=== PATIENT | male | born 1970 | race Caucasian/White ===

== ENCOUNTER 2019-10-23 22:46 | Observation (INO) | payer MEDICAID ==
[2019-10-23] MEDS ORDERED: Sodium Chloride 0.9% 1000 ML 1,000 ML IV STA (23:09)
[2019-10-23] MEDS ORDERED: Sodium Chloride 0.9% 1000 ML 1,000 ML ONE (23:14)
[2019-10-23 23:40] LABS: Absolute Neutrophil Ct (ANC) 3.14 (1.4-6.9); BASOPHIL % 1.7 % (0.0-0.4); Eosinophil % 2.5 % (0.00-5.0); Eosinophil (Absolute #) 0.15 (0-0.5); Hematocrit 35.4 % (42-50); Hemoglobin 12.7 gm/dl (12.5-18.0); Lymphocyte (Absolute #) 1.69 (1.0-4.6); Lymphocytes % 28.2 % (24.0-44.0); Mean Cell Volume 106.6 fl (78-100); Mean Corpuscular Hemoglobin 38.3 pg (26-32); Mean Corpuscular Hgb Concent. 35.9 g/dl (32-36); Mean Platelet Volume 11.1 fl (6-9.5); Monocyte (Absolute #) 0.92 (0.0-1.3); Monocytes % 15.3 % (0.0-12.0); Neutrophil % 52.3 % (36.0-66.0); Platelet Count 57 K/mm3 (150-450); Red Blood Count 3.32 M/mm3 (4.1-5.6); Red Cell Distribution Width 15.5 % (11.5-14.0)
[2019-10-23 23:44] LABS: INR 1.98 (0.8-3.0); PROTIME 22.7 SECONDS (8.83-12.87)
[2019-10-23 23:49] LABS: ALBUMIN 2.7 g/dL (3.5-5.0); ALKALINE PHOSPHATASE 203 U/L (38-126); AMYLASE 123 U/L (30-110); ANION GAP 11.2 MEQ/L (5-15); BLOOD UREA NITROGEN 6 mg/dL (9-20); CHLORIDE 108 mmol/L (98-107); CK-Creatinine Phosphokinase 235 U/L (55-170); Carbon Dioxide 28 mmol/L (22-30); Creatinine 1 0.59 mg/dL (0.66-1.25); Glucose 106 mg/dL (74-106); LIPASE 181 U/L (23-300); SGOT/AST 117 U/L (17-59); SGPT/ALT 31 U/L (0-50); SODIUM 143 mmol/L (137-145); Total Protein 7.2 g/dL (6.3-8.2)
[2019-10-24 00:01] LABS: NT PRO BNP 59.3 pg/mL (0-900); TROPONIN < 0.012 ng/mL (0.000-0.034)
--- NOTE | 2019-10-24 01:03 | ERPHSYRPT ---
- History of Present Illness Time Seen by Provider: 10/23/19 23:09 Source: patient Exam Limitations: clinical condition Patient Subjective Stated Complaint: pt states, "I am coughing alot, coughing up white sputum, exhausted, headaches, achy all over, diarrhea". Triage Nursing Assessment: pt's girlfriend brought pt back by wheelchair, pt alert and oriented x3, cooperative. Lungs have few scattered rhonchi, otherwise clear. Abd soft with active bs x4 quad, nontender. Pt c/o prod cough x2 weeks, diarrhea, achiness and its progressively getting worse. Physician History: patient is a 49-year-old male who presents with complaint of cough. He moved to the area 2 months ago to be with a new significant other for the past 4and in weeks has been feeling bad from respiratory standpoint. He actually says he been feeling especially bad for last 2 weeks.. It turns out he has a history of cirrhosis and chronic liver failure and stopped all of his medicines about 2 months ago when he moved here. His cough is producing some sputum he's had some chills and body aches he rates his pain 7/10 he's had wheezing with this cough he said some nausea and vomiting. He thinks that his thinking is not as sharp as it was. Timing/Duration: week(s) (4) Activities at Onset: none Severity of Dyspnea-Max: mild Severity of Dyspnea-Current: mild Possible Cause: unknown cause Modifying Factors: Improves With: coughing Associated Symptoms: cough, chest pain/discomfort, fever, wheezing, chills International travel in last 2 weeks: No Allergies/Adverse Reactions: No Known Drug Allergies Allergy (Unverified 10/23/19 23:15) Home Medications: Lorazepam [Ativan] 1 mg PO TID 10/23/19 [History] Hx Tetanus, Diphtheria Vaccination/Date Given: No Hx Influenza Vaccination/Date Given: No Hx Pneumococcal Vaccination/Date Given: No Immunizations Up to Date: No - Review of Systems Constitutional: No Fever, No Chills Eyes: No Symptoms Ears, Nose, & Throat: No Symptoms Respiratory: No Cough, No Dyspnea Cardiac: No Chest Pain, No Edema, No Syncope Abdominal/Gastrointestinal: Nausea, Vomiting, Diarrhea, Other (history for a this), No Abdominal Pain Genitourinary Symptoms: No Dysuria Musculoskeletal: No Back Pain, No Neck Pain Skin: No Rash Neurological: Headache, Lethargy, No Dizziness, No Focal Weakness, No Sensory Changes Psychological: Memory Loss, Mood Changes Endocrine: No Symptoms All Other Systems: Reviewed and Negative - Past Medical History Pertinent Past Medical History: Yes Neurological History: Seizures ENT History: No Pertinent History Cardiac History: No Pertinent History Respiratory History: Asthma, Sleep Apnea Endocrine Medical History: No Pertinent History Musculoskeletal History: Fractures GI Medical History: Cirrhosis History: No Pertinent History Psycho-Social History: Anxiety Male Reproductive Disorders: No Pertinent History - Past Surgical History Past Surgical History: Yes Neuro Surgical History: No Pertinent History Cardiac: No Pertinent History Respiratory: No Pertinent History Gastrointestinal: Hernia Repair Genitourinary: No Pertinent History Musculoskeletal: No Pertinent History Male Surgical History: No Pertinent History Other Surgical History: rt hand, lt hand fx surgeries. umbilical hernia - Social History Smoking Status: Current every day smoker How long have you smoked: 42 yrs Exposure to second hand smoke: Yes Drug Use: marijuana Patient Lives Alone: No - Nursing Vital Signs Nursing Vital Signs: Initial Vital Signs Temperature 98.4 F 10/23/19 22:57 Pulse Rate 85 10/23/19 22:57 Respiratory Rate 18 10/23/19 22:57 Blood Pressure 130/69 10/23/19 22:57 O2 Sat by Pulse Oximetry 94 L 10/23/19 22:57 Pain Scale Pain Intensity 7 - Physical Exam General Appearance: mild distress, alert, lethargy, other (jaundiced) Eye Exam: PERRL/EOMI, scleral icterus Ears, Nose, Throat Exam: hearing grossly normal, normal ENT inspection, normal pharynx Neck Exam: normal inspection, supple Respiratory Exam: chest tenderness, respiratory distress (mild), rhonchi Cardiovascular/Chest Exam: normal heart sounds, regular rate/rhythm Abdominal/Gastrointestinal Exam: soft, No tenderness, No distention, No mass Extremity Exam: non-tender, normal range of motion, normal inspection, no calf tenderness, no pedal edema Peripheral Pulses Exam: carotid (R): 2+, carotid (L): 2+ Neurologic Exam: alert, oriented x 3, cooperative, turbine subassembler II-XII nml as tested, sensation nml, depressed mood/affect, No motor deficits Skin Exam: normal color, warm, No dry Lymphatic Exam: No adenopathy SpO2 Interpretation: normal SpO2: 96 O2 Delivery: Room Air - Course Nursing assessment & vital signs reviewed: Yes EKG Interpreted by Me: RATE (84), Sinus Rhythm, NORMAL AXIS, Non-specific ST Changes, Other (poor R wave progression) - CT Exams Chest CT Interpretation: Tele-radiologist Report Ordered Tests: Active Orders 24 hr Category Date Time Status EKG-ER Only STAT Care 10/23/19 23:09 Active IV Insertion STAT Care 10/23/19 23:09 Active CHEST 1 VIEW (PORTABLE) Stat Exams 10/23/19 23:10 Taken CHEST WITH CONTRAST [CT] Stat Exams 10/24/19 00:18 Taken AMYLASE Stat Lab 10/23/19 23:31 Completed BLOOD CULTURE Stat Lab 10/23/19 23:31 Received CBC W DIFF Stat Lab 10/23/19 23:31 Completed CK-Creatinine Phosphokinase Stat Lab 10/23/19 23:31 Completed CMP Stat Lab 10/23/19 23:31 Completed D-DIMER QUANTITATION Stat Lab 10/23/19 23:31 Completed Erythrocyte Sedimentation Rate Stat Lab 10/23/19 23:31 Completed LIPASE Stat Lab 10/23/19 23:31 Completed Lactic Acid Stat Lab 10/23/19 23:30 Completed NT PRO BNP Routine Lab 10/23/19 23:31 Completed PROTIME WITH INR Stat Lab 10/23/19 23:31 Completed TROPONIN Q3H Lab 10/23/19 23:31 Completed UA W/RFX UR CULTURE Stat Lab 10/23/19 02:11 Completed Medication Summary Discontinued Medications Generic Name Dose Route Start Last Admin Trade Name Freq PRN Reason Stop Dose Admin Sodium Chloride 1,000 mls @ 999 mls/hr 10/23/19 23:09 10/23/19 23:28 Sodium Chloride 0.9% 1000 Ml IV 10/24/19 00:09 999 mls/hr .Q1H1M STA Administration Sodium Chloride Confirm 10/23/19 23:14 Sodium Chloride 0.9% 1000 Ml Administered 10/23/19 23:15 Dose 1,000 mls @ ud .ROUTE .STK-MED ONE Lab/Rad Data: Laboratory Result Diagrams 10/23/19 23:31 10/23/19 23:31 Laboratory Results 10/23/19 10/23/19 10/23/19 Range/Units 23:34 23:31 23:31 WBC (4.0-10.5) K/mm3 RBC (4.1-5.6) M/mm3 Hgb (12.5-18.0) gm/dl Hct (42-50) % MCV (78-100) fl MCH (26-32) pg MCHC (32-36) g/dl RDW (11.5-14.0) % Plt Count (150-450) K/mm3 MPV (6-9.5) fl Gran % (36.0-66.0) % Eos # (Auto) (0-0.5) Absolute Lymphs (auto) (1.0-4.6) Absolute Monos (auto) (0.0-1.3) Lymphocytes % (24.0-44.0) % Monocytes % (0.0-12.0) % Eosinophils % (0.00-5.0) % Basophils % (0.0-0.4) % Absolute Granulocytes (1.4-6.9) Basophils # (0-0.4) ESR 27 H (0-15) mm/hr PT (8.83-12.87) SECONDS INR (0.8-3.0) D-Dimer (215-500) ng/mL Sodium (137-145) mmol/L Potassium (3.5-5.1) mmol/L Chloride (98-107) mmol/L Carbon Dioxide (22-30) mmol/L Anion Gap (5-15) MEQ/L BUN (9-20) mg/dL Creatinine (0.66-1.25) mg/dL Estimated GFR ML/MIN Glucose (74-106) mg/dL Lactic Acid (0.4-2.0) Calcium (8.4-10.2) mg/dL Total Bilirubin (0.2-1.3) mg/dL AST (17-59) U/L ALT (0-50) U/L Alkaline Phosphatase (38-126) U/L Ammonia 81 H (9-30) umol/L Creatine Kinase (55-170) U/L Troponin I < 0.012 (0.000-0.034) ng/mL NT-Pro-B Natriuret Pep 59.3 (0-900) pg/mL Serum Total Protein (6.3-8.2) g/dL Albumin (3.5-5.0) g/dL Amylase (30-110) U/L Lipase (23-300) U/L Urine Color (YELLOW) Urine Appearance (CLEAR) Urine pH (5-6) Ur Specific [place] (1.005-1.025) Urine Protein (Negative) Urine Ketones (NEGATIVE) Urine Blood (0-5) Rachid/ul Urine Nitrite (NEGATIVE) Urine Bilirubin (NEGATIVE) Urine Urobilinogen (0-1) mg/dL Ur Leukocyte Esterase (NEGATIVE) Urine WBC (Auto) (0-5) /HPF Urine RBC (Auto) (0-2) /HPF U Hyaline Cast (Auto) (0-2) /LPF U Epithel Cells (Auto) (FEW) /HPF Urine Bacteria (Auto) (NEGATIVE) /HPF Urine Mucus (Auto) (NEGATIVE) /HPF Urine Culture Reflexed (NO) Urine Glucose (NEGATIVE) mg/dL 10/23/19 10/23/19 10/23/19 Range/Units 23:31 23:31 23:31 WBC 6.0 (4.0-10.5) K/mm3 RBC 3.32 L (4.1-5.6) M/mm3 Hgb 12.7 (12.5-18.0) gm/dl Hct 35.4 L (42-50) % MCV 106.6 H (78-100) fl MCH 38.3 H (26-32) pg MCHC 35.9 (32-36) g/dl RDW 15.5 H (11.5-14.0) % Plt Count 57 L (150-450) K/mm3 MPV 11.1 H (6-9.5) fl Gran % 52.3 (36.0-66.0) % Eos # (Auto) 0.15 (0-0.5) Absolute Lymphs (auto) 1.69 (1.0-4.6) Absolute Monos (auto) 0.92 (0.0-1.3) Lymphocytes % 28.2 (24.0-44.0) % Monocytes % 15.3 H (0.0-12.0) % Eosinophils % 2.5 (0.00-5.0) % Basophils % 1.7 (0.0-0.4) % Absolute Granulocytes 3.14 (1.4-6.9) Basophils # 0.10 (0-0.4) ESR (0-15) mm/hr PT 22.7 H (8.83-12.87) SECONDS INR 1.98 (0.8-3.0) D-Dimer 33037 H* (215-500) ng/mL Sodium 143 (137-145) mmol/L Potassium 4.0 (3.5-5.1) mmol/L Chloride 108 H (98-107) mmol/L Carbon Dioxide 28 (22-30) mmol/L Anion Gap 11.2 (5-15) MEQ/L BUN 6 L (9-20) mg/dL Creatinine 0.59 L (0.66-1.25) mg/dL Estimated GFR > 60.0 ML/MIN Glucose 106 (74-106) mg/dL Lactic Acid (0.4-2.0) Calcium 8.0 L (8.4-10.2) mg/dL Total Bilirubin 6.20 H (0.2-1.3) mg/dL AST 117 H (17-59) U/L ALT 31 (0-50) U/L Alkaline Phosphatase 203 H (38-126) U/L Ammonia (9-30) umol/L Creatine Kinase 235 H (55-170) U/L Troponin I (0.000-0.034) ng/mL NT-Pro-B Natriuret Pep (0-900) pg/mL Serum Total Protein 7.2 (6.3-8.2) g/dL Albumin 2.7 L (3.5-5.0) g/dL Amylase 123 H (30-110) U/L Lipase 181 (23-300) U/L Urine Color (YELLOW) Urine Appearance (CLEAR) Urine pH (5-6) Ur Specific [place] (1.005-1.025) Urine Protein (Negative) Urine Ketones (NEGATIVE) Urine Blood (0-5) Rachid/ul Urine Nitrite (NEGATIVE) Urine Bilirubin (NEGATIVE) Urine Urobilinogen (0-1) mg/dL Ur Leukocyte Esterase (NEGATIVE) Urine WBC (Auto) (0-5) /HPF Urine RBC (Auto) (0-2) /HPF U Hyaline Cast (Auto) (0-2) /LPF U Epithel Cells (Auto) (FEW) /HPF Urine Bacteria (Auto) (NEGATIVE) /HPF Urine Mucus (Auto) (NEGATIVE) /HPF Urine Culture Reflexed (NO) Urine Glucose (NEGATIVE) mg/dL 12/01/19 12/01/19 Range/Units 23:30 02:11 WBC (4.0-10.5) K/mm3 RBC (4.1-5.6) M/mm3 Hgb (12.5-18.0) gm/dl Hct (42-50) % MCV (78-100) fl MCH (26-32) pg MCHC (32-36) g/dl RDW (11.5-14.0) % Plt Count (150-450) K/mm3 MPV (6-9.5) fl Gran % (36.0-66.0) % Eos # (Auto) (0-0.5) Absolute Lymphs (auto) (1.0-4.6) Absolute Monos (auto) (0.0-1.3) Lymphocytes % (24.0-44.0) % Monocytes % (0.0-12.0) % Eosinophils % (0.00-5.0) % Basophils % (0.0-0.4) % Absolute Granulocytes (1.4-6.9) Basophils # (0-0.4) ESR (0-15) mm/hr PT (8.83-12.87) SECONDS INR (0.8-3.0) D-Dimer (215-500) ng/mL Sodium (137-145) mmol/L Potassium (3.5-5.1) mmol/L Chloride (98-107) mmol/L Carbon Dioxide (22-30) mmol/L Anion Gap (5-15) MEQ/L BUN (9-20) mg/dL Creatinine (0.66-1.25) mg/dL Estimated GFR ML/MIN Glucose (74-106) mg/dL Lactic Acid 1.8 (0.4-2.0) Calcium (8.4-10.2) mg/dL Total Bilirubin (0.2-1.3) mg/dL AST (17-59) U/L ALT (0-50) U/L Alkaline Phosphatase (38-126) U/L Ammonia (9-30) umol/L Creatine Kinase (55-170) U/L Troponin I (0.000-0.034) ng/mL NT-Pro-B Natriuret Pep (0-900) pg/mL Serum Total Protein (6.3-8.2) g/dL Albumin (3.5-5.0) g/dL Amylase (30-110) U/L Lipase (23-300) U/L Urine Color [place] (YELLOW) Urine Appearance CLEAR (CLEAR) Urine pH 6.0 (5-6) Ur Specific [place] 1.024 (1.005-1.025) Urine Protein NEGATIVE (Negative) Urine Ketones NEGATIVE (NEGATIVE) Urine Blood LARGE (0-5) Rachid/ul Urine Nitrite NEGATIVE (NEGATIVE) Urine Bilirubin MODERATE (NEGATIVE) Urine Urobilinogen 4 (0-1) mg/dL Ur Leukocyte Esterase NEGATIVE (NEGATIVE) Urine WBC (Auto) 0-2 (0-5) /HPF Urine RBC (Auto) 3-5 (0-2) /HPF U Hyaline Cast (Auto) 3-5 (0-2) /LPF U Epithel Cells (Auto) NONE (FEW) /HPF Urine Bacteria (Auto) RARE (NEGATIVE) /HPF Urine Mucus (Auto) SLIGHT (NEGATIVE) /HPF Urine Culture Reflexed NO (NO) Urine Glucose NEGATIVE (NEGATIVE) mg/dL - Progress Progress: unchanged Air Movement: poor Blood Culture(s) Obtained: Yes Antibiotics given: Yes Discussed with : David Will see patient in: hospital (observation) Counseled pt/family regarding: lab results, rad results - Departure Departure Disposition: Observation Clinical Impression: Hepatic failure Condition: Poor Critical Care Time: No Referrals: DOCTOR,NO FAMILY [Primary Care Provider] -
[2019-10-24 02:18] LABS: Appearance CLEAR (CLEAR); Bacteria RARE /HPF (NEGATIVE); Bilirubin MODERATE (NEGATIVE); Blood LARGE Ery/ul (0-5); Glucose NEGATIVE (NEGATIVE); Ketones NEGATIVE (NEGATIVE); Leukocyte Esterase NEGATIVE (NEGATIVE); Mucus SLIGHT /HPF (NEGATIVE); Nitrite NEGATIVE (NEGATIVE); Protein,Urine Dip NEGATIVE (Negative); Specific Gravity 1.024 (1.005-1.025); Urobilinogen 4 mg/dL (0-1); WBC 0-2 /HPF (0-5)
[2019-10-24] MEDS ORDERED: Zofran 4 MG/2 ML VIAL IV PRN (02:38)
[2019-10-24] MEDS ORDERED: DILAUDID 2 MG INJECTION IV PRN (02:38)
[2019-10-24] MEDS ORDERED: Rocephin 1000 MG INJ IM ONE (02:45)
[2019-10-24] MEDS: LACTULOSE 20 GM/30ML UD CUP PO SCH ×2 (03:29→11:38)
[2019-10-24 05:06] LABS: Hematocrit 35.4 % (42-50); Hemoglobin 12.3 gm/dl (12.5-18.0); Mean Cell Volume 109.3 fl (78-100); Mean Corpuscular Hgb Concent. 34.7 g/dl (32-36); Mean Platelet Volume 10.2 fl (6-9.5); Platelet Count 51 K/mm3 (150-450); Red Blood Count 3.24 M/mm3 (4.1-5.6); Red Cell Distribution Width 15.6 % (11.5-14.0)
[2019-10-24 05:31] LABS: ALBUMIN 2.5 g/dL (3.5-5.0); ALKALINE PHOSPHATASE 208 U/L (38-126); ANION GAP 8.9 MEQ/L (5-15); BLOOD UREA NITROGEN 5 mg/dL (9-20); CHLORIDE 108 mmol/L (98-107); Calcium 7.6 mg/dL (8.4-10.2); Carbon Dioxide 29 mmol/L (22-30); Glucose 86 mg/dL (74-106); Potassium 3.8 mmol/L (3.5-5.1); SGOT/AST 114 U/L (17-59); SGPT/ALT 30 U/L (0-50); SODIUM 142 mmol/L (137-145); Total Protein 6.7 g/dL (6.3-8.2)
[2019-10-24 06:09] LABS: Eosinophil 1 % (0.00-3.0); Lymphocytes 22 % (24-44); Monocyte 11 % (0.0-12.0); Neutrophils 66 % (36.-66.); Platelet Estimate DECREASED (NORMAL); Total Cells Counted 100
[2019-10-24 06:10] LABS: Targert Cells 1+
[2019-10-24 06:11] LABS: Macrocytosis 1+
[2019-10-24] MEDS ORDERED: Advair Hfa 115/21 Common canister IH SCH (07:00)
[2019-10-24] MEDS ORDERED: PROVENTIL COMMON CANISTER IH PRN (07:14)
[2019-10-24] MEDS ORDERED: Sodium Chloride 0.9% 1000 ML 1,000 ML IV SCH (07:30)
[2019-10-24] MEDS ORDERED: Nicoderm CQ 21 MG TOP SCH (07:45)
[2019-10-24 08:22] LABS: INFLUENZA A NEGATIVE (NEGATIVE); INFLUENZA B NEGATIVE (NEGATIVE); RESPIRATORY SYNCTIAL VIRUS NEGATIVE (Negative)
--- NOTE | 2019-10-24 09:06 | XRAY ---
Indication: Fever, cough, congestion, and wheezing. Elevated d-dimer. Multiple contiguous axial images obtained through the chest using 80 cc Isovue 370 contrast and PE protocol. Comparison: None. There is good opacification of the pulmonary arteries to include the lobar and segmental branches. No filling defect or pulmonary embolus. Heart is not enlarged. Aorta minimally arteriosclerotic without aneurysm/dissection. Tiny left perihilar calcified nodes. No pathologic mediastinal/hilar lymphadenopathy. Lungs demonstrates bilateral dependent atelectasis and left lower lobe calcified granuloma. No suspicious pulmonary mass, infiltrate, or effusion. Bony thorax intact with mild degenerative changes throughout the spine. Upper abdomen demonstrates cirrhotic liver with small perihepatic/perisplenic ascites and left upper quadrant varices. Abnormally distended gallbladder with wall thickening/enhancement. Impression: 1. Negative pulmonary embolus. No acute cardiopulmonary abnormalities. 2. Evidence for old granulomatous disease. 3. Abnormally distended gallbladder with wall thickening/enhancement. Rule out acalculous cholecystitis. Gallbladder sonogram may yield further information. 3. Cirrhotic liver with small abdominal ascites and splenorenal varices. Comment: Preliminary interpretation was made by [facility] does not report abnormal gallbladder finding. Telephone report given to Dr. Graff in the ER at 0900 hrs. on October 24, 2019. CT DI 23.68
--- NOTE | 2019-10-24 09:11 | XRAY ---
Indication: Cough and congestion. Comparison: None Portable chest demonstrates normal heart and lungs. Bony thorax intact.
[2019-10-24] MEDS ORDERED: Ativan 1 MG PO PRN (09:20)
[2019-10-24] MEDS ORDERED: Aldactone 25 MG PO SCH (10:00)
[2019-10-24] MEDS ORDERED: ROCEPHIN 1 Gm-D5w 50 ml Bag** 1 G/50 ML IVPB IV SCH ×2 (10:00→22:00)
[2019-10-24 11:42] VITALS: BP 142/67; PULSE 86; O2SAT 94
--- NOTE | 2019-10-24 13:18 | SSS ---
DISCHARGE DIAGNOSES: 1) BRONCHITIS. 2) CIRRHOSIS OF THE LIVER. 3) ALCOHOLISM. HISTORY: The patient is a 49 year-old white male patient who presented to the emergency room with complaints of coughing. He reports he has been bringing up some white sputum. He had been achy all over and having some diarrhea issues as well. The patient had recently moved to our area to be with a significant other roughly two months ago. He had been in [place] prior to this time. He has diagnosis of cirrhosis of the liver with liver failure. He does have a GI specialist in [place]. The patient reports that his illness was due to alcoholism and he does still drink wine on occasion. The patient reports that he is not interested in having a liver transplant. On evaluation in the emergency room, the patient was found to have significant abnormalities in his laboratory studies but otherwise was essentially presenting with a bronchitis-type picture and was in no specific distress otherwise. Due to the late evening hours, the patient was felt the need to stay in the hospital overnight for monitoring of his ammonia levels as they were significantly elevated. PHYSICAL EXAMINATION: The patient's vital signs on admission showed a temperature of 98.4F, pulse 85, respiratory rate 18 and blood pressure 130/69. O2 saturation 94% on room air. HEENT: Normocephalic, atraumatic. Pupils equal round reactive to light. Extraocular movements intact. Oropharynx seemed to be slightly dry. NECK: Supple without lymphadenopathy, thyromegaly or JVD. CHEST: Clear to auscultation bilaterally. HEART: Regular rate and rhythm. ABDOMEN: Soft, nonprotuberant. No palpable masses. No hepatosplenomegaly. No caput medusae. No ascites. EXTREMITIES: Without cyanosis, clubbing or edema. NEUROLOGIC: The patient was somewhat somnolent but he had been up all night. MEDICATIONS: Apparently the only medication he has at home otherwise is Ativan. He has had lactulose but has not had this recently. SOCIAL HISTORY: The patient's history otherwise significant for smoking. LAB DATA AND TESTS: The patient's laboratory studies from the emergency room showed urine with specific gravity 1.024, was moderate on bilirubin and large on blood, 3 to 5 white blood cells per high power field were noted, 3 to 5 hyaline casts. The patient's D-dimer was elevated at 12,974. The patient did receive CT of the chest with pulmonary embolism protocol which was negative. His international normalized ratio was 1.98. CBC showed a white count of 6,000, hemoglobin 12.7. His PLT count is 57,000. He had 53.2% lymphocytes and 15.3% monocytes. His lactic acid was 1.8. Ammonia level was 81. Glucose 106, BUN 6, creatinine 0.59. Electrolytes were essentially normal. His bilirubin was elevated at 6.2. His SGPT was 31 and SGOT was 117, alkaline phosphatase was 203. Amylase and lipase were essentially normal. CPK slightly elevated at 235. Sedimentation rate was elevated at 27. Troponin was negative. ProBNP was normal. HOSPITAL COURSE: A patient with bronchitis admitted to the hospital and given a dose of IV Rocephin. He had bibasilar atelectasis but no evidence of pneumonia. The patient's liver was significantly abnormal with his bilirubin being elevated. Liver enzymes were only moderately elevated. The patient's PLT count was 50,000 and prolonged international normalized ratio due to his liver failure. The patient was given a dose of Lactulose, given IV fluids to try to help reduce his ammonia level and was otherwise essentially able to eat a meal. We gave him instructions on low protein diet. The patient apparently has had any evidence of a seizure disorder recently but has Ativan at 1 mg at home t.i.d. on an as needed basis this is his only other listed medication. The patient at this time otherwise is felt to be stable for discharge home having nothing more acute going on. He was instructed to restart his Lactulose and to seek a primary field care advocate here in the area to help follow with him. He was instructed to keep his GI specialist in [place] and to consult with them as soon as possible due to his abnormalities but again the patient reports he is not interested in any aggressive management otherwise and at this time is still drinking alcohol on at least an occasional basis.
== END 2019-10-24 15:32 | disposition home or self-care (01) ==
LOC: ED 22:46 → MED SURG 10-24 03:05
PROVIDERS: ADMIT Family Medicine; ATTEND Family Medicine
DX: J40 Bronchitis, not specified as acute or chronic (principal); K74.60 Unspecified cirrhosis of liver; F10.20 Alcohol dependence, uncomplicated
CPT/HCPCS: 36415; 71045; 71260; 80053; 81001; 82140; 82150; 82550; 83605; 83690; 83880; 84484; 85025; 85379; 85610; 85652; 87040; 87631; 93005; 93268; 94640; 94760; 96360; 99284; G0378; 96374; J0696; J1170; A9270-GY